=== PATIENT | female | born 1960 | race Caucasian/White ===

== ENCOUNTER 2017-08-07 10:47 | Emergency (ER) | payer MEDICAID, OTHER ==
[~2017-08-07] VITALS: Ht 170.2 cm; Wt 57.6 kg
[2017-08-07 10:47] VITALS: BP 160/92
== END 2017-08-07 12:59 | disposition home or self-care (01) ==
LOC: ER 10:49
DX: J01.90 Acute sinusitis, unspecified (principal); J00 Acute nasopharyngitis [common cold]
CPT/HCPCS: 99283; A4606; Z7610